=== PATIENT | female | born 1940 | race Caucasian/White ===

== ENCOUNTER 2016-09-15 04:26 | Inpatient (IN) | payer MEDICARE, OTHER ==
--- NOTE | ~2016-09-15 | HP ---
History And Physical [address] [address] NAME: JUAN GA : 38 STATUS : ADM Danny PAT#: [id number] AGE: 75 ADM/REG DATE : 09/15/16 MR#: [id number] REPORT SERV DATE: 09/15/16 DICTATED BY: DAVID MUNIZ DATE: 09/15/16 REPORT STATUS : Draft TRANSCRIBED BY: MODL DATE: 09/15/16 DATE OF ADMISSION: 09/15/2016 CHIEF COMPLAINT: Accepted transfer from [facility] after speaking with Dr. Ruggiero. According to him, Mrs. Ga was 75-year-old female who presented there with five days of worsening shortness of breath and cough. He said initially she had presented the day before and after evaluation was discharged home because she had normal blood results and the chest x-ray was normal. She returned today with similar complaints and worsening shortness of breath and chest x-ray today showed patchy infiltrates in the right lung. This was suggestive of pneumonia according to their Radiology report. Her saturations were 91% to 92% on room air. White blood cell count was negative. Hemoglobin was 9.6, hematocrit 28; BUN was 42, creatinine 2.0 today. It was 1.8 earlier in the year. She had a BNP of 401 which was high. EKG was not performed in the ER there. An ABG was not done either. At the time of transfer according to Dr. Ruggiero, she had a blood pressure of 147/71, her heart rate was 76, respirations were 20 a minute, temperature was 98.2, and pulse oximetry was 91% on room air. [facility] was asked to accept her in transfer. At the time of my evaluation here, the patient was on 100% non-rebreather. According to the EMS, they had picked the patient up in the ER there on 4 L of oxygen via nasal cannula. En route, she had worsened and they had bumped it up to 7 L of oxygen per minute. She denied any chest pain, palpitations, or orthopnea. She had no cough, hemoptysis, night sweats, or weight loss. She has not had any fevers, chills, nausea, vomiting, diarrhea. No history of recent falls or loss of consciousness. No history of recent hematemesis, hematochezia, or hematuria. No other history of recent travel or exposures. PAST MEDICAL HISTORY: Significant for history of coronary artery disease with history of myocardial infarction followed by Dr. Hiram Ortega; history of pulmonary edema, requiring mechanical ventilation; history of hypothyroidism; paroxysmal atrial fibrillation; chronic kidney disease, stage 3; peripheral arterial disease with stents in her legs, on Plavix. She also has history of diabetes mellitus; has a pacemaker placement; and hypertension as well. SOCIAL HISTORY: She does not smoke, drink, or use recreational drugs. FAMILY HISTORY: Noncontributory. MEDICATIONS: Her medications at home were reviewed by me in the chart today and reordered by me. REVIEW OF SYSTEMS: As in history of present illness. All other systems were reviewed in detail and are quite unremarkable. PHYSICAL EXAMINATION: GENERAL: This is a pleasant 75-year-old female, not in any acute distress. HEENT: Her head is atraumatic and normocephalic. She is alert, awake, oriented to time, History And Physical [address] [address] NAME: JUAN GA : 38 STATUS : ADM Danny PAT#: [id number] AGE: 75 ADM/REG DATE : 09/15/16 MR#: [id number] REPORT SERV DATE: 09/15/16 DICTATED BY: DAVID MUNIZ DATE: 09/15/16 REPORT STATUS : Draft TRANSCRIBED BY: ELVIA DATE: 09/15/16 place, and person. Her pupils are equal, reacting to light and accommodating. External ocular muscles are intact. Membranes are moist and pink. Sclerae are nonicteric. NECK: Supple with no jugular venous distention, lymphadenopathy, or thyromegaly. LUNGS: Auscultation of her lungs reveal bilateral crackles with no expiratory wheezes. There were no rales. HEART: Auscultation of her heart revealed normal rate with no murmurs, rubs, or gallops. ABDOMEN: Soft and nontender. Bowel sounds are present. EXTREMITIES: No cyanosis or clubbing. There was bilateral pitting lower extremity edema. NEUROLOGIC: Grossly intact. No focal sensory or motor deficits. She was able to move all four extremities. Higher functions appeared intact. VITAL SIGNS: Her vital signs which accompanied the patient from [facility] was reviewed by me in the chart today. LABORATORY DATA: Other laboratory data which accompanied the patient from [facility] was reviewed by me in the chart today. IMPRESSION: 1. Acute exacerbation of congestive heart failure. 2. Volume overload. 3. Diabetes mellitus type 2. 4. Uncontrolled hypertension. 5. Acute hypoxic respiratory failure secondary to volume overload and pulmonary edema. 6. Coronary artery disease with history of myocardial infarction. 7. Hypothyroidism. 8. Paroxysmal atrial fibrillation. 9. Chronic kidney disease, stage 3. 10.Peripheral arterial disease with stents. PLAN: We will admit Mrs. Ga to the Hospitalist Service with telemetry for a 24-hour observation period. At this time, I do not feel it is pneumonia, but more like congestive heart failure with elevated BNP. We will go ahead and start her on diuretics for 24 hours, and get an echocardiogram. We will follow serial outputs and daily weights as well. Due to her acute hypoxic respiratory failure upon arrival here, we will go ahead and get a stat chest x-ray. Give her a dose of intravenous Bumex stat. Get an arterial blood gas, and if necessary we will start her on BiPAP therapy for positive pressure ventilation. For her uncontrolled blood pressures we will start her on hydralazine given stat x1 now and q.4-6 hours as needed to control pressures. We will restart her home medications as well. We will also get an EKG and follow serial troponins and cardiac enzymes. We will go ahead and consult [facility] to see her in the morning. Meanwhile, we will place her on bronchodilators and oxygen, hold antibiotics for now. We will also start her on blood sugar control with NovoLog given subcutaneously per sliding scale and check her A1c. She will be placed on unfractionated heparin for DVT prophylaxis while here. We will also continue her Plavix. Please see today's orders for all the details. I have discussed the above plans with the patient. Her questions were answered and she is agreeable to the above recommendations. Hospitalist Service will be following her during her stay here. History And Physical [address] [place]. [address] NAME: JUAN GA : 38 STATUS : ADM Danny PAT#: [id number] AGE: 75 ADM/REG DATE : 09/15/16 MR#: [id number] REPORT SERV DATE: 09/15/16 DICTATED BY: DAVID MUNIZ DATE: 09/15/16 REPORT STATUS : Draft TRANSCRIBED BY: ELVIA DATE: 09/15/16 Total critical care time spent with the patient was 45 minutes. /ELVIA David Muniz M.D. / [id number] CC: Driss Calabrese MD
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
--- NOTE | ~2016-09-15 | DS ---
Discharge Summary [facility] [address] [facility]. [address] NAME: JUAN GA : 38 STATUS : ADM IN [facility]#: [id number] AGE: 75 ADM/REG DATE : 09/16/16 MR#: [id number] REPORT SERV DATE: 09/24/16 DICTATED BY: Nikolay BARILLAS DATE: 09/24/16 REPORT STATUS : Draft TRANSCRIBED BY: MODL DATE: 09/24/16 ADMISSION DATE: 09/16/2016 DISCHARGE DATE: DATE OF INTERIM SUMMARY: 09/24/2016. For details of earlier hospital stay, please see interim summary dictated by Dr. Tobar on 09/20/2016. DIAGNOSES AT TIME OF CURRENT INTERIM SUMMARY: Recurrent atrial fibrillation, hypoxic respiratory failure, dense bilateral pulmonary infiltrates, permanent pacemaker, chronic kidney disease, demand ischemia, insulin-requiring diabetes, and chronic anemia. ACTIVE CONSULTATIONS: Pulmonology. PROCEDURES: None. HOSPITAL COURSE: Starting 09/21/2016, the ongoing concern for this patient is the source of her persistent dense pulmonary infiltrates and the associated hypoxic respiratory failure. She continues to have high O2 demands vacillating between Vapotherm and BiPAP therapy. The patient has received greater than seven days of broad-spectrum antimicrobial therapy in the form of vancomycin and cefepime with negative cultures and negative procalcitonin. Her current therapy has been transitioned to meropenem, but because of her complicated clinical picture, we have asked ID to see the patient and give a recommendation for the need for ongoing antimicrobial therapy. Her amiodarone has been discontinued over the concern for this being possibly related to amiodarone lung injury. This was okayed by Cardiology. The patient has gone back into atrial fibrillation off amiodarone and is currently being treated with Cardizem continuous infusion. The patient is on steroid therapy at 60 mg daily and she does have a slowly improving picture on chest x-ray. At the time of this dictation, we continued to observe her on meropenem until ID sees the patient. We will continue steroid therapy. We will continue her off amiodarone. We will manage her heart rate. We will continue her Cardizem. We will closely monitor data. She remains DNI with chemical code and BiPAP therapy allowable. I have explained her clinical picture in detail. I have reviewed the imaging with the family and discussed the precarious nature of her current respiratory status. We are not in a position to pursue consideration for bronchoscopy or open lung biopsy as this would certainly leave her with a need for mechanical ventilation for a potential extended period of time. As a result, our current plan is to continue with current therapy and observe closely with the additional input from ID as mentioned above. The patient's hospitalist care will be provided by another member of the team starting 09/25/2016 with ongoing comanagement from Pulmonary as well as input from Infectious Disease. NIGEL/ELVIA Discharge Summary [address] [place]. [address] NAME: JUAN GA : 38 STATUS : ADM IN [facility]#: [id number] AGE: 75 ADM/REG DATE : 09/16/16 MR#: [id number] REPORT SERV DATE: 09/24/16 DICTATED BY: Nikolay BARILLAS DATE: 09/24/16 REPORT STATUS : Draft TRANSCRIBED BY: ELVIA DATE: 09/24/16 Nikolay Barillas M.D. / [id number] CC: Carlos Johnson FREDRICK S
--- NOTE | ~2016-09-15 | DS ---
Discharge Summary [facility] [address] [place]. [address] NAME: JUAN GA : 38 STATUS : DIS IN PAT#: [id number] AGE: 75 ADM/REG DATE : 09/16/16 MR#: [id number] REPORT SERV DATE: 09/28/16 DICTATED BY: Nikolay BARILLAS DATE: 09/27/16 REPORT STATUS : Draft TRANSCRIBED BY: MODL DATE: 09/27/16 ADMISSION DATE: 09/16/2016 DISCHARGE DATE: 09/27/2016 SUMMARY Date of summary is 09/27/2016. For details of interim summaries, please see notes that were dictated on 09/20/2016, by Dr. Tobar and then on 09/24/2016, by myself. DIAGNOSES AT THE TIME OF THE PATIENT'S DEMISE: Acute hypoxic respiratory failure, bilateral pulmonary infiltrates, suspect pneumonia as well as progressive adult respiratory distress syndrome. Chronic kidney disease. Demand ischemia. Recurrent atrial fibrillation. Insulin-requiring diabetes. Chronic anemia. CONSULTATIONS: Pulmonology and cardiology. HOSPITAL COURSE: Starting 09/25/2016, the patient had continued to have a progressive course with high O2 requirements and intermittent BiPAP secondary to persistent dense bilateral pulmonary infiltrates. The patient has been seen and evaluated by Infectious Disease. They agreed to continue meropenem and re-culture. Lab work has been relatively unchanged and she has had no significant fevers and cultures have remained negative. On Tuesday, the patient had worsening respiratory status with increased respiratory effort and declining mental status. Her x-ray showed again very dense bilateral infiltrates. The patient is a known Do Not Intubate. The family was gathered and told that she would not likely survive her hospitalization and all family who would like to see her needed to come on to the hospital. The patient had a large gathering of family and in the course of the afternoon, she did to succumb to her multiple medical problems and . No resuscitation efforts were undertaken due to her wishes. No autopsy was requested. Per protocol, [facility] will be called. The patient's certificate was completed by myself at the time of the patient's demise, and her ultimate time of was 15:58 in the afternoon on 09/27/2016. NIGEL/ELVIA Nikolay Barillas M.D. / [id number] CC: Carlos Johnson
--- NOTE | ~2016-09-15 | IDS ---
Interim Discharge Summary [facility] [address] [place]. [address] NAME: JUAN GA : 38 STATUS : ADM IN [facility]#: [id number] AGE: 75 ADM/REG DATE : 09/16/16 MR#: [id number] REPORT SERV DATE: 09/20/16 DICTATED BY: DATE: REPORT STATUS : Draft TRANSCRIBED BY: MODL DATE: 09/20/16 ADMISSION DATE: 09/16/2016 DISCHARGE DATE: The patient is admitted to the [facility]. ATTENDING PHYSICIANS: 1. Ishmael Tobar MD. 2. Sergio Moore MD. CONSULTANTS: Include Dr. Liz Jean Baptiste of pulmonology and Dr. Saurabh Cruz of Cardiology. CURRENT DIAGNOSES: 1. Acute hypoxemic respiratory failure-currently requiring p.r.n. BiPAP and/or 15 L of oxygen by nasal cannula, for trial of Vapotherm today. 2. Bilateral community-acquired pneumonia. 3. Acute "flash" pulmonary edema. 4. Paroxysmal atrial fibrillation, status post ablation. 5. History of sick sinus syndrome, status post pacemaker. 6. Demand related ischemia-no acute myocardial infarction. 7. History of coronary artery disease and prior LAD stent. 8. Hypertension-occasionally uncontrolled, suspect due to anxiety. 9. Insulin-dependent diabetes mellitus type 2-controlled. Hemoglobin A1c 6.5. Occasional hypoglycemia in the hospital. 10.Chronic kidney disease, stage 3-stable. 11.History of peripheral arterial disease with prior carotid stent and SFA stent. 12.Chronic anemia. 13.History of GI bleeding-no evidence of current GI bleed. 14.Scant hemoptysis-suspect due to pneumonia and/or pulmonary edema. 15.Hypothyroidism-with iatrogenic hyperthyroidism. Levothyroxine decreased. 16.Generalized anxiety disorder-benzodiazepine dependent requiring Precedex for BiPAP. IMAGIN. Portable chest x-ray 09/15 shows diffuse bilateral pulmonary infiltrates with vascular congestion. Atelectasis and/or consolidation involving right lung base. Small possible small right pleural effusion. 2. Echocardiogram, 09/15, normal left ventricular size and systolic function with EF 55%. Mild left ventricular diastolic dysfunction. Normal right ventricular size and systolic function. Mild aortic and mitral regurgitation. 3. Chest CT without contrast, 09/16, shows extensive bilateral pneumonia most dense in the right base. 4. Portable chest x-ray, 09/17, shows some improvement in the right lower lobe. However, bilaterally severe predominantly alveolar densities probably pneumonic, however, secondary failure changes cannot be excluded. 5. Portable chest, 09/18, showing severe pneumonic infiltrate throughout both lung torres. Cardiomegaly. Interim Discharge Summary [facility] [id number] [place]. [address] NAME: JUAN GA : 38 STATUS : ADM IN PAT#: [id number] AGE: 75 ADM/REG DATE : 09/16/16 MR#: [id number] REPORT SERV DATE: 09/20/16 DICTATED BY: DATE: REPORT STATUS : Draft TRANSCRIBED BY: MODL DATE: 09/20/16 6. Portable chest, 09/18, shows severe, but stable appearance of diffuse pulmonic infiltrates and cardiomegaly. No increased density in the lung torres. 7. Portable chest x-ray, 09/19, shows diffuse bilateral infiltrates with no significant change. 8. Portable chest, 09/20, continued multifocal airspace consolidation, slightly improved in the right upper lobe. PERTINENT LABS: Blood gases prior to admission showed pH 7.39, PCO2 45, PO2 101, oxygen saturation 97% on FiO2 100%. BNP 420. White blood cell count 15.1, hemoglobin 10.9- currently 8.6, hematocrit 34.3, platelets 268. Initial creatinine 1.9, currently 1.6. Glucose values this hospitalization ranging from 56 to 376. Initial troponin 0.01. TSH 0.135 with free T4 2.02. Urine Legionella antigen negative. Strep pneumococcal antigen negative. Sputum Gram stain and culture from 09/15 shows less than 10 white blood cells, less than 25 epithelial cells with growth of normal respiratory ishaan. Blood cultures x2 negative. Procalcitonin has been negative. BRIEF HISTORY: For full details, please see the previously dictated history of present illness by Dr. David Quiroga. This is a 75-year-old white female, who was accepted in transfer from [facility] Emergency Department. The patient had presented there with five days of worsening shortness of breath and a cough productive of blood-tinged sputum. She had initially been seen in the [place] [facility] Department on the , but discharged home due to normal blood results and normal chest x-ray. She returned on the with similar complaints and worsening shortness of breath. Chest x-ray that day showed patchy infiltrates in the right lung. Oxygen saturations reportedly there were normal, and the patient was accepted in transfer. When she arrived to the [facility] Emergency Department, she was hypoxemic on a 100% nonrebreather with systolic blood pressure ranging in the 180 to 200 range. She was admitted through the Hospitalist Service following stabilization with presumed diagnoses of acute exacerbation of congestive heart failure, volume overload, acute hypoxemic respiratory failure due to volume overload and pulmonary edema, and potential bilateral community- acquired pneumonia. HOSPITAL COURSE: The patient initially was admitted to the 7th floor, under the service of Dr. Ishmael Tobar. Consultations were obtained from Cardiology and Pulmonology. The patient was diuresed, but still had very high oxygen requirements between 12 and 15 L nasal cannula. Cardiology felt that this more likely represented a pneumonic process rather than congestive heart failure as echocardiogram demonstrated only mild diastolic dysfunction and preserved ejection fraction of 55%. BNP was only minimally elevated at 400. The patient had evidence of demand related ischemia, but no evidence of acute myocardial infarction. They recommended maximum management of medications for the treatment of pneumonia. Unfortunately, despite Rocephin and azithromycin, flutter valve, incentive spirometry, IV steroids, nebulized steroids use, the patient continued to require very high amounts of oxygen. A CT of her chest was obtained to evaluate for any other pathology and was read only as pneumonia with possible superimposed volume component. The patient continued to require 100% nonrebreather through the evening and night of 09/17. The team attempted to Interim Discharge Summary [address] [address] NAME: JUAN GA : 38 STATUS : ADM IN [facility]#: [id number] AGE: 75 ADM/REG DATE : 09/16/16 MR#: [id number] REPORT SERV DATE: 09/20/16 DICTATED BY: DATE: REPORT STATUS : Draft TRANSCRIBED BY: MODL DATE: 09/20/16 place her on BiPAP for correction of hypoxemia, but her anxiety would not allow for that, despite the use of large doses of Ativan. End of life counseling occurred on 09/18, at which point, it was determined the patient was a do not resuscitate and do not intubate. I was contacted the afternoon of 09/18 to accept the patient in transfer to the IMCU as she was then amenable to BiPAP therapy. The etiology of the patient's profound acute hypoxemic respiratory failure, remains unclear. She has no history of underlying chronic lung disease or chronic hypoxemia. She does have ongoing evidence of bilateral pneumonic infiltrates, but negative procalcitonin and negative sputum samples. She was briefly on vancomycin and Maxipime on the floor during time of acute worsening, for concern of possible ineffective antibiotic coverage. Those have been changed back to Rocephin and azithromycin here. When Pulmonary saw the patient, they felt that she still had a component of volume overload and was placed on IV Bumex. With that, she has diuresed over 2 L with improvement in her chest x-ray and oxygen requirements, and stability of her creatinine. Currently, she is still requiring intermittent BiPAP with a Precedex drip to assist intolerance. We will attempt to trial her on Vapotherm today and see how that goes, to possibly transfer her out to the floor later this evening or tomorrow. There is some question on the chart of a prior diagnosis of amiodarone-induced pulmonary toxicity. Of note, the patient is currently taking amiodarone. This medication was not discontinued by Cardiology and so they have been reconsulted to clarify the issue into provide recommendations on the patient's amiodarone specifically. Her other issues are stable at present. Her oral hypoglycemic with discontinued here and insulin decreased due to hypoglycemia. Her home dose of levothyroxine was similarly decreased, for evidence of iatrogenic hyperthyroidism and over replacement. DISPOSITION: My colleague will assume care of the patient starting tomorrow. JOSEFINA/ELVIA Sergio Moore M.D. / [id number] CC: Carlos Silverio FREDRICK S
--- NOTE | ~2016-09-15 | CN ---
Consultation Report [facility] [address]. [address] NAME: JUAN GA : 38 STATUS : ADM IN [facility]#: [id number] AGE: 75 ADM/REG DATE : 09/16/16 MR#: [id number] REPORT SERV DATE: 09/25/16 DICTATED BY: DAVID CRUMP DATE: 09/24/16 REPORT STATUS : Draft TRANSCRIBED BY: MODL DATE: 09/24/16 INFECTIOUS DISEASE CONSULT DATE OF CONSULTATION: REASON FOR CONSULT: Respiratory failure. HISTORY OF PRESENT ILLNESS: 75 years old white lady with history of coronary artery disease, status post [place], pace maker placement, paroxysmal atrial fibrillation, hypothyroidism, diabetes, hypertension, peripheral vascular disease, status post left carotid endarterectomy, and superficial femoral artery stent, who was transferred from [facility] emergency room for respiratory failure. In October 2015, she had acute respiratory failure, thought to be due to pulmonary edema. She was started on amiodarone for atrial fibrillation. A few days prior to this admission, she started feeling tired. She is usually quite active. She noted runny nose, cough. She was trying to expectorate maybe some colored sputum. The patient repeatedly tells me she did not feel short of breath, although the family states that she was short of breath. She had no fever or chills, no chest pain. They took her to the local emergency room at [facility], it sounds like three times and eventually with the third visit, a chest x-ray showed some bilateral patchy infiltrates more on the right side. She was transferred to [facility]. According to the H and P, on route from there, she went from 4 L of oxygen to 100% non-rebreather mask. At the emergency room, she was given Solu-Medrol, Rocephin, and azithromycin. Lab work showed WBC of 9, hemoglobin 9, creatinine 2.0. Liver enzymes within normal limits. BNP of 1. After she came here, she was thought to be in heart failure, so she was given hydralazine for hypertension and a diuretic. Blood cultures were collected and were negative. Of note, the blood cultures from blood sore also negative. A sputum culture was done and grew just normal ishaan. The following day, she was started on Rocephin, azithromycin, and steroids because it was thought that this maybe more than heart failure with presumed pneumonia. Echocardiogram showed mild diastolic dysfunction, left ventricular ejection fraction of 55%. A CT scan of the chest on the 16 of September showed bilateral upper lobe "terminal lobular consolidations" and right more than left lower lobe consolidations. The heart looked enlarged. She has persistent respiratory failure with persistent lung infiltrates. She requires BiPAP. She saturates when she goes on Vapotherm. She mostly complains of tiredness. She has mouth soreness. She has abdominal pain perhaps from coughing. She has a Chan catheter. There was some question about maybe amiodarone causing the respiratory failure, so that was stopped on the . Antibiotics mostly have been Rocephin, azithromycin with an interlude cefepime and vancomycin. Then yesterday, the antibiotics were changed to meropenem. ABGs have been showing some hypercapnia on 100% of oxygen. She has not had a fever, blood pressure has not been low, she has been diuresed. Lab work today creatinine improved to Consultation Report [address] [address] NAME: JUAN GA : 38 STATUS : ADM IN [facility]#: [id number] AGE: 75 ADM/REG DATE : 09/16/16 MR#: [id number] REPORT SERV DATE: 09/25/16 DICTATED BY: DAVID CRUMP DATE: 09/24/16 REPORT STATUS : Draft TRANSCRIBED BY: ELVIA DATE: 09/24/16 1.4, BUN increased to 76, WBC 13, hemoglobin 7.4. She never had any bandemia. According to the family a few days prior to her getting ill, she might have choked on taking a pill. PAST MEDICAL HISTORY: As I mentioned above plus cholecystectomy and skin cancers removed from her nose. ALLERGIES: LISTED IN THE CHART ARE STADOL AND DEMEROL CAUSING ANAPHYLAXIS AND THEN ALSO HYDROCHLOROTHIAZIDE, CODEINE, MORPHINE, AND BENAZEPRIL. MEDICATIONS ON ADMISSION: Xanax as needed, aspirin, Lipitor, Bumex, clonidine, Plavix, Tricor, hydralazine, insulin, isosorbide, labetalol, levothyroxine, omeprazole, Januvia, and Spiriva. SOCIAL HISTORY: She is a . Lives by herself. She has no pets. She is active. She has been around a young child with possible influenza. She has not traveled. She has not spent time outdoors. No house remodeling. She has not lived in other states. No history of TB. She does not smoke. FAMILY HISTORY: As I mentioned, there is a baby with febrile illness, possible influenza. PHYSICAL EXAMINATION: GENERAL: On exam, she is tired, she speaks softly, hard to understand. She has some whitish discoloration of the oral mucosa. She has an ulceration on the tongue. LUNGS: With decreased sounds throughout and rales. HEART: Distant sounds. Regular rhythm. ABDOMEN: Compressible, some soreness to palpation from where she had Lovenox injections. EXTREMITIES: She has ecchymosis over her arms and some recumbent left arm edema. No sacral decubitus. No skin rash that I can see. No feet lesions. ASSESSMENT AND PLAN: 1. Bilateral pneumonia with respiratory failure and some hypercapnia. 2. Oral thrush. Also watch for labial herpes. 3. The patient with the pacemaker. The site does not look inflamed. History of coronary artery disease with paroxysmal atrial fibrillation. 4. Diabetes. 5. Hypertension. 6. Hypothyroidism. This might have started with influenza or flu-like viral illness and developed pneumonia. She has persistent lung infiltrates. She also might have aspirated on a pill. She has been getting steroids and antibiotics for community-acquired pneumonia for 10 plus days but yesterday she was switched to meropenem to cover nosocomial and anaerobic organisms. She had prior episodes of pneumonia and at least one episode of heart failure Consultation Report [address] [place]. [address] NAME: JUAN GA : 38 STATUS : ADM IN [facility]#: [id number] AGE: 75 ADM/REG DATE : 09/16/16 MR#: [id number] REPORT SERV DATE: 09/25/16 DICTATED BY: DAVID CRUMP DATE: 09/24/16 REPORT STATUS : Draft TRANSCRIBED BY: ELVIA DATE: 09/24/16 according to the family and the chart. Differential diagnosis as I mentioned, post influenza pneumonia, aspiration. I wonder if there was initially any heart failure component. I discussed with the patient and the family. I discussed with Pulmonology. Time spent more than 2 hours. RADHA/ELVIA David Crump M.D. / [id number] CC: Carlos Johnson Dr.
--- NOTE | ~2016-09-15 | CN ---
Consultation Report [facility] [address] [place]. [address] NAME: JUAN GA : 38 STATUS : ADM Danny PAT#: [id number] AGE: 75 ADM/REG DATE : 09/15/16 MR#: [id number] REPORT SERV DATE: 09/15/16 DICTATED BY: JAIME EUCEDA DATE: 09/15/16 REPORT STATUS : Draft TRANSCRIBED BY: MODL DATE: 09/15/16 CARDIOVASCULAR CONSULTATION DATE OF CONSULTATION: 09/15/2016 Dyspnea. HISTORY OF PRESENT ILLNESS: This is a 75-year-old patient of my partner, Dr. Hiram Handy. She has a history of previous coronary artery disease with stenting; paroxysmal atrial fibrillation, status post atrial fibrillation ablation; sick sinus syndrome, status post pacemaker; and known peripheral vascular disease. She is admitted with worsening symptoms of dyspnea and transferred from [facility]. She was initially given IV fluids overnight and her respiratory status has worsened. She does not complain of any chest pain. She is more hypoxic. She is quite dyspneic. PAST MEDICAL HISTORY: 1. Coronary artery disease, status post previous LAD stenting. 2. Paroxysmal atrial fibrillation, status post atrial fibrillation ablation. 3. Sick sinus syndrome, status post pacemaker placement. 4. Hypertension. 5. Hypercholesterolemia. 6. Type 2 diabetes. 7. History of GI bleed. 8. History of peripheral vascular disease with known carotid disease and prior SFA stenting. 9. Chronic kidney disease, stage III. SOCIAL HISTORY: She does not smoke or drink alcohol. FAMILY HISTORY: There is no family history of early coronary artery disease. REVIEW OF SYSTEMS: A complete review of systems was obtained, which is negative in detail except as mentioned above in the HPI. ALLERGIES: A RASHES NOTED TO BENAZEPRIL, CODEINE, MORPHINE, HYDROCHLOROTHIAZIDE, AND MEPERIDINE. HOME MEDICATIONS: Include: 1. Alprazolam, aspirin 81 mg daily, Lipitor 20 mg daily, Bumex 2 mg once a day. 2. Clonidine 0.1 twice a day, Plavix 75 mg once a day, TriCor, hydralazine 25 mg three times a day, insulin, Imdur 90 mg daily, labetalol 100 mg twice a day, Synthroid, Prilosec, and Januvia. PHYSICAL EXAMINATION: Consultation Report [facility] [address] [place]. [address] NAME: JUAN GA : 38 STATUS : ADM Danny PAT#: [id number] AGE: 75 ADM/REG DATE : 09/15/16 MR#: [id number] REPORT SERV DATE: 09/15/16 DICTATED BY: JAIME EUCEDA DATE: 09/15/16 REPORT STATUS : Draft TRANSCRIBED BY: MODL DATE: 09/15/16 VITAL SIGNS: Blood pressure initially 175/75, heart rate of 74, respiratory rate of 14. GENERAL: Comfortable in no acute distress. HEENT: Anicteric. No xanthelasma. Lips without cyanosis. NECK: No JVD. Carotids 2+ and symmetric. No carotid bruits. CHEST: There are diffuse inspiratory and expiratory wheezes with mild crackles at both bases bilaterally. CARDIAC: Irregularly irregular. Normal S1, S2. ABD: Soft, nontender, nondistended. Normal bowel sounds. No abdominal bruits. EXT: No clubbing, cyanosis or edema 2+ and symmetric distal pulses. SKIN: Warm. Dry. No venous stasis changes. MS: No kyphosis. NEURO/PSYCH: Oriented x3. No anxiety or depression. IMAGING: EKG: A 12-lead EKG shows the sinus rhythm, 73 beats per minute. Nonspecific T- wave abnormalities noted. Echocardiogram: Echocardiogram on 09/15/2016 shows normal left ventricular size and systolic function with EF of 55%. Mild valvular regurgitation noted. PA chest x-ray shows diffuse bilateral pulmonary infiltrates. LABORATORY STUDIES: Potassium of 4.3, creatinine of 1.9. White count of 15,000, hematocrit of 34. Troponin of 0.1. BNP of 420. IMPRESSION: This is a 75-year-old woman admitted with respiratory failure in the setting of likely pneumonia and volume overload in the setting of acute on chronic diastolic congestive heart failure. She has a mild troponin elevation in the setting consistent with demand ischemia. I agree with plans for IV diuresis and antibiotics and supportive care for her hypertension. WW/MODSebastian Jaime Euceda M.D. / [id number] CC: MD Lui Martinez
[~2016-09-15 04:26] MED LIST: AMARYL2 PO; APRES25 PO; ASA5GR PO; ASAB PO; ASABAYER PO; ASAEC PO; AVAP150 PO; BUM2 PO; CAT1 PO; COREG25 PO; DIABET2.5 PO; DIABETA5 PO; DIGITEK0.125 MG PO; DIOV160 PO; DIOV80 PO; DIOVAN320 MG PO; ELIQUIS 2.5 MG2.5 MG PO; ENDOCET1 TAB PO; HUMALOG SC; HYDRALAZINE100 MG PO; IMDUR30 PO; IMDUR60 PO; JANUVIA100 MG PO; JANUVIA50 PO; L20 PO; L40 PO; LANTUS SC; LIPITOR20 PO; LOM PO; LORTAB 5 PO; MAALOX PO; MIRALAXPKT PO; MULTIPLE VIT PO; NEXIUM40 PO; NIFEDIAC CC90 MG PO; NITROSTAT0.4 MG SL; NORCO1 TA1 PO; NORV10 PO; PCET PO; PERCOCET; PERCOCET1 TA5 PO; PLAVIX PO; PR25 PO; PRILOSEC40 MG PO; SOMATAB PO; SPIRIVA INH; STOOL SOFTEN100 MG PO; SYN.05 PO; SYN075 PO; SYN1 PO; TESS PO; TRANDAT100 PO; TRICOR145 PO; V5 PO; VITD PO; X25 PO; X5 PO; XANAX1 MG PO
[2016-09-15 05:02] LABS: ALLENS TEST Pos; BE (BASE EXCESS) 0.4 MEQ/L (0 +/- 2.5); DEVICE NRB; HCO3 (ACTUAL BICARBONATE) 25.8 MEQ/L (23-27); HEMOBLOGIN CONTENT 11.5 G/DL (12-16); INSTRUMENT SERIAL # 35151; METHEMOGLOBIN 0.3 % (0-3); O2 CONTENT 15.7 VOL% (18-24); OPERATOR ID 33449; PCO2 (CO2 TENSION) 45 MMHG (35-45); PO2 (O2 TENSION) 101 MMHG (79-93); SAMPLE Arterial; pH 7.38 (7.37-7.43)
[2016-09-15] MEDS ORDERED: APRES50 PO (05:35)
[2016-09-15 05:58] LABS: BE (BASE EXCESS) 6.4 MEQ/L (0 +/- 2.5); CARBOXYHEMOGLOBIN 1.3 % (0-3); HEMOBLOGIN CONTENT 12.7 G/DL (12-16); INSTRUMENT SERIAL # 8087; METHEMOGLOBIN 0.2 % (0-3); PCO2 (CO2 TENSION) 56 MMHG (35-45); PO2 (O2 TENSION) 73 MMHG (79-93); pH 7.39 (7.37-7.43)
[2016-09-15 05:59] LABS: ALLENS TEST Pos; DEVICE NC; O2 CONTENT 16.5 VOL% (18-24); OPERATOR ID 35390; SAMPLE Arterial
[2016-09-15 08:13] LABS: BASOPHILS 0.1 %; BASOPHILS ABSOLUTE 0.02 10/3/uL (0.0-0.16); EOSINOPHILS 0.1 %; EOSINOPHILS ABSOLUTE 0.01 10/3/uL (0.0-0.53); HEMATOCRIT 34.3 % (36.0-48.0); HEMOGLOBIN 10.9 g/dL (12.0-16.0); IMMATURE GRANULOCYTES 0.6 %; IMMATURE GRANULOCYTES ABSOLUTE 0.09 10/3/uL (0.0-0.11); LYMPHOCYTES 3.7 %; LYMPHOCYTES ABSOLUTE 0.56 10/3/uL (0.67-4.30); MEAN CORPUS HGB CONC 31.8 g/dL (32.0-36.0); MEAN CORPUSCULAR HEMOGLOB 28.5 pg (26.0-34.0); MEAN CORPUSCULAR VOLUME 89.6 fL (80-100); MEAN PLATELET VOLUME 9.6 fL (9.2-13.0); MONOCYTES 1.2 %; MONOCYTES ABSOLUTE 0.18 10/3/uL (0.21-1.20); NEUTROPHILS 94.3 %; NEUTROPHILS ABSOLUTE 14.22 10/3/uL (2.02-8.40); PLATELET COUNT 268 10/3/uL (150-400); RBC DISTRIBUTION WIDTH 14.5 % (12.0-16.0); RED CELL COUNT 3.83 10/6/uL (4.0-5.6); WHITE BLOOD CELLS 15.1 10/3/uL (4.5-10.5)
[2016-09-15 08:14] LABS: MANUAL DIFF NO %
[2016-09-15 08:32] LABS: A/G RATIO 0.8 (0.7-1.9); ALBUMIN 3.3 G/DL (3.5-5.0); ALKALINE PHOSPHATASE 83 U/L (45-117); BUN (BLOOD UREA NITROGEN) 41 MG/DL (6-23); CALCIUM, SERUM 8.5 MG/DL (8.5-10.4); CHLORIDE, SERUM 98 MMOL/L (96-112); CO2 (CARBON DIOXIDE) 29 MMOL/L (24-34); GFR AFRICAN AMERICAN 29 ML/MIN (>=60); GFR NON AFRICAN AMERICAN 25 ML/MIN (>=60); GLOBULIN 4.3 G/DL (2.5-4.1); GLUCOSE, SERUM 376 MG/DL (60-99); PHOSPHORUS, SERUM 4.2 MG/DL (2.5-4.5); POTASSIUM, SERUM 4.3 MMOL/L (3.5-5.3); SGOT(AST) 30 U/L (5-40); SGPT(ALT) 36 U/L (5-65); SODIUM, SERUM 136 MMOL/L (135-148); TOTAL BILIRUBIN 0.7 MG/DL (0-1.2); TOTAL PROTEIN 7.6 G/DL (6.0-8.5); ULTRASENSITIVE TSH 0.231 MCIU/ML (0.358-3.740)
[2016-09-15] MEDS ORDERED: TRAN200 PO (17:17)
[2016-09-15] MEDS ORDERED: ASAB PO (17:17)
[2016-09-15] MEDS ORDERED: BUM2 PO ×2 (17:17)
[2016-09-15] MEDS ORDERED: IMDUR30 PO (17:18)
[2016-09-15] MEDS ORDERED: LEVOTHYROXIN75 MCG PO (17:18)
[2016-09-15] MEDS ORDERED: JANUVIA50 PO (17:18)
[2016-09-15] MEDS ORDERED: CAT1 PO (17:18)
[2016-09-15] MEDS ORDERED: X5 PO (17:19)
[2016-09-15] MEDS ORDERED: X25 PO (17:20)
[2016-09-15] MEDS ORDERED: HYDRALAZINE100 MG PO (17:20)
[2016-09-15] MEDS ORDERED: PLAVIX PO (17:20)
[2016-09-15] MEDS ORDERED: LIPITOR40 PO (17:20)
[2016-09-15] MEDS ORDERED: LANTUS SC (17:20)
[2016-09-15] MEDS ORDERED: PRILOSEC40 MG PO (17:21)
[2016-09-15] MEDS ORDERED: HUMALOG SC (17:21)
[2016-09-15] MEDS ORDERED: NORV10 PO (17:21)
[2016-09-15] MEDS ORDERED: CORDARONE PO (17:21)
[2016-09-15] MEDS ORDERED: VITAMIN D PO (17:34)
[2016-09-16 03:50] LABS: BE (BASE EXCESS) 4.6 MEQ/L (0 +/- 2.5); CARBOXYHEMOGLOBIN 0.3 % (0-3); DEVICE NRB; HEMOBLOGIN CONTENT 10.2 G/DL (12-16); INSTRUMENT SERIAL # 35151; METHEMOGLOBIN 0.4 % (0-3); O2 CONTENT 14.1 VOL% (18-24); PCO2 (CO2 TENSION) 49 MMHG (35-45); PO2 (O2 TENSION) 118 MMHG (79-93); SAMPLE Arterial; pH 7.41 (7.37-7.43)
[2016-09-16 05:19] LABS: BASOPHILS 0.1 %; BASOPHILS ABSOLUTE 0.02 10/3/uL (0.0-0.16); EOSINOPHILS 0 %; HEMATOCRIT 31.2 % (36.0-48.0); HEMOGLOBIN 10.1 g/dL (12.0-16.0); IMMATURE GRANULOCYTES 0.6 %; IMMATURE GRANULOCYTES ABSOLUTE 0.09 10/3/uL (0.0-0.11); LYMPHOCYTES 3.9 %; LYMPHOCYTES ABSOLUTE 0.61 10/3/uL (0.67-4.30); MEAN CORPUS HGB CONC 32.4 g/dL (32.0-36.0); MEAN CORPUSCULAR HEMOGLOB 29.1 pg (26.0-34.0); MEAN CORPUSCULAR VOLUME 89.9 fL (80-100); MEAN PLATELET VOLUME 9.7 fL (9.2-13.0); MONOCYTES 1.8 %; MONOCYTES ABSOLUTE 0.28 10/3/uL (0.21-1.20); NEUTROPHILS 93.6 %; NEUTROPHILS ABSOLUTE 14.75 10/3/uL (2.02-8.40); PLATELET COUNT 234 10/3/uL (150-400); RBC DISTRIBUTION WIDTH 14.5 % (12.0-16.0); RED CELL COUNT 3.47 10/6/uL (4.0-5.6); WHITE BLOOD CELLS 15.8 10/3/uL (4.5-10.5)
[2016-09-16 05:20] LABS: MANUAL DIFF NO %
[2016-09-16 05:32] LABS: A/G RATIO 0.8 (0.7-1.9); ALBUMIN 2.9 G/DL (3.5-5.0); CALCIUM, SERUM 8.6 MG/DL (8.5-10.4); CHLORIDE, SERUM 99 MMOL/L (96-112); CO2 (CARBON DIOXIDE) 30 MMOL/L (24-34); CREATININE 1.67 MG/DL (0.55-1.02); GFR AFRICAN AMERICAN 34 ML/MIN (>=60); GFR NON AFRICAN AMERICAN 29 ML/MIN (>=60); GLOBULIN 3.8 G/DL (2.5-4.1); POTASSIUM, SERUM 3.9 MMOL/L (3.5-5.3); SGOT(AST) 24 U/L (5-40); SGPT(ALT) 31 U/L (5-65); SODIUM, SERUM 141 MMOL/L (135-148); TOTAL BILIRUBIN 0.6 MG/DL (0-1.2); TOTAL PROTEIN 6.7 G/DL (6.0-8.5)
[2016-09-16 05:36] LABS: ALKALINE PHOSPHATASE 65 U/L (45-117); BUN (BLOOD UREA NITROGEN) 46 MG/DL (6-23); GLUCOSE, SERUM 289 MG/DL (60-99)
[2016-09-16 06:26] LABS: PROCALCITONIN 0.08 ng/mL (<0.5)
[2016-09-16 06:33] LABS: B NATRIURETIC PEPTIDE (BNP) 300.7 PG/ML (< 100.0)
[2016-09-16 13:07] LABS: GLYCOHEMOGLOBIN (HbA1c) 6.5 % (4.7-6.1)
[2016-09-17 05:15] LABS: BASOPHILS 0.1 %; BASOPHILS ABSOLUTE 0.01 10/3/uL (0.0-0.16); EOSINOPHILS 0 %; HEMATOCRIT 31.2 % (36.0-48.0); HEMOGLOBIN 9.9 g/dL (12.0-16.0); IMMATURE GRANULOCYTES 0.9 %; IMMATURE GRANULOCYTES ABSOLUTE 0.17 10/3/uL (0.0-0.11); LYMPHOCYTES 2.6 %; LYMPHOCYTES ABSOLUTE 0.51 10/3/uL (0.67-4.30); MEAN CORPUS HGB CONC 31.7 g/dL (32.0-36.0); MEAN CORPUSCULAR VOLUME 91.5 fL (80-100); MEAN PLATELET VOLUME 9.9 fL (9.2-13.0); MONOCYTES 2.5 %; NEUTROPHILS 93.9 %; NEUTROPHILS ABSOLUTE 18.71 10/3/uL (2.02-8.40); PLATELET COUNT 225 10/3/uL (150-400); RBC DISTRIBUTION WIDTH 14.4 % (12.0-16.0); RED CELL COUNT 3.41 10/6/uL (4.0-5.6); WHITE BLOOD CELLS 19.9 10/3/uL (4.5-10.5)
[2016-09-17 05:16] LABS: MANUAL DIFF NO %
[2016-09-17 05:48] LABS: CALCIUM, SERUM 8.1 MG/DL (8.5-10.4); CHLORIDE, SERUM 106 MMOL/L (96-112); CO2 (CARBON DIOXIDE) 34 MMOL/L (24-34); GFR AFRICAN AMERICAN 36 ML/MIN (>=60); GFR NON AFRICAN AMERICAN 31 ML/MIN (>=60); POTASSIUM, SERUM 3.6 MMOL/L (3.5-5.3); SODIUM, SERUM 146 MMOL/L (135-148)
[2016-09-17 05:51] LABS: BUN (BLOOD UREA NITROGEN) 55 MG/DL (6-23)
[2016-09-17 05:52] LABS: GLUCOSE, SERUM 114 MG/DL (60-99)
[2016-09-17 23:22] LABS: ALLENS TEST Pos; BE (BASE EXCESS) 7.1 MEQ/L (0 +/- 2.5); CARBOXYHEMOGLOBIN 0.3 % (0-3); DEVICE HFNC; HCO3 (ACTUAL BICARBONATE) 34.4 MEQ/L (23-27); HEMOBLOGIN CONTENT 10.1 G/DL (12-16); INSTRUMENT SERIAL # 35151; METHEMOGLOBIN 0.4 % (0-3); O2 CONTENT 12.9 VOL% (18-24); OPERATOR ID 13861; PCO2 (CO2 TENSION) 65 MMHG (35-45); PO2 (O2 TENSION) 70 MMHG (79-93); SAMPLE Arterial; pH 7.34 (7.37-7.43)
[2016-09-18 04:20] LABS: HEMATOCRIT 31.5 % (36.0-48.0); HEMOGLOBIN 9.9 g/dL (12.0-16.0); MANUAL DIFF YES %; MEAN CORPUS HGB CONC 31.4 g/dL (32.0-36.0); MEAN CORPUSCULAR HEMOGLOB 29.2 pg (26.0-34.0); MEAN CORPUSCULAR VOLUME 92.9 fL (80-100); MEAN PLATELET VOLUME 10.3 fL (9.2-13.0); PLATELET COUNT 231 10/3/uL (150-400); RBC DISTRIBUTION WIDTH 14.7 % (12.0-16.0); RED CELL COUNT 3.39 10/6/uL (4.0-5.6); WHITE BLOOD CELLS 18.6 10/3/uL (4.5-10.5)
[2016-09-18 04:34] LABS: CALCIUM, SERUM 8.3 MG/DL (8.5-10.4); CHLORIDE, SERUM 107 MMOL/L (96-112); CO2 (CARBON DIOXIDE) 35 MMOL/L (24-34); GFR AFRICAN AMERICAN 36 ML/MIN (>=60); GFR NON AFRICAN AMERICAN 31 ML/MIN (>=60); PHOSPHORUS, SERUM 3.7 MG/DL (2.5-4.5); POTASSIUM, SERUM 4.3 MMOL/L (3.5-5.3); SODIUM, SERUM 148 MMOL/L (135-148)
[2016-09-18 04:40] LABS: BAND NEUTROPHILS 1 %; LYMPHOCYTES 4 %; LYMPHOCYTES ABSOLUTE (CALC) 0.74 10/3/uL (0.67-4.30); NEUTROPHILS ABSOLUTE (CALC) 17.86 10/3/uL (2.02-8.40); SEGMENTED NEUTROPHIL (0) 95 %; TOTAL NUCLEATED CELLS 100
[2016-09-18 04:41] LABS: PLATELET ESTIMATE ADQ (ADEQUATE)
[2016-09-18 04:42] LABS: BUN (BLOOD UREA NITROGEN) 70 MG/DL (6-23); GLUCOSE, SERUM 84 MG/DL (60-99)
[2016-09-18 15:46] LABS: ALLENS TEST Pos; BE (BASE EXCESS) 6.2 MEQ/L (0 +/- 2.5); CARBOXYHEMOGLOBIN 0.3 % (0-3); DEVICE NRB; HCO3 (ACTUAL BICARBONATE) 33.2 MEQ/L (23-27); HEMOBLOGIN CONTENT 10.8 G/DL (12-16); INSTRUMENT SERIAL # 35151; METHEMOGLOBIN 0.4 % (0-3); O2 CONTENT 13.8 VOL% (18-24); PCO2 (CO2 TENSION) 61 MMHG (35-45); PO2 (O2 TENSION) 70 MMHG (79-93); SAMPLE Arterial; pH 7.35 (7.37-7.43)
[2016-09-18 19:40] LABS: ALLENS TEST Pos; BE (BASE EXCESS) 6.9 MEQ/L (0 +/- 2.5); CARBOXYHEMOGLOBIN 0.3 % (0-3); HEMOBLOGIN CONTENT 8.9 G/DL (12-16); INSTRUMENT SERIAL # 35151; METHEMOGLOBIN 0.5 % (0-3); O2 CONTENT 11.1 VOL% (18-24); PCO2 (CO2 TENSION) 49 MMHG (35-45); PO2 (O2 TENSION) 59 MMHG (79-93); SAMPLE Arterial; pH 7.43 (7.37-7.43)
[2016-09-19 05:39] LABS: BASOPHILS 0.1 %; BASOPHILS ABSOLUTE 0.01 10/3/uL (0.0-0.16); EOSINOPHILS 0 %; HEMATOCRIT 29.5 % (36.0-48.0); HEMOGLOBIN 9.2 g/dL (12.0-16.0); IMMATURE GRANULOCYTES 1.1 %; IMMATURE GRANULOCYTES ABSOLUTE 0.16 10/3/uL (0.0-0.11); LYMPHOCYTES 3.2 %; LYMPHOCYTES ABSOLUTE 0.49 10/3/uL (0.67-4.30); MEAN CORPUS HGB CONC 31.2 g/dL (32.0-36.0); MEAN CORPUSCULAR HEMOGLOB 28.8 pg (26.0-34.0); MEAN CORPUSCULAR VOLUME 92.5 fL (80-100); MONOCYTES 2.2 %; MONOCYTES ABSOLUTE 0.34 10/3/uL (0.21-1.20); NEUTROPHILS 93.4 %; NEUTROPHILS ABSOLUTE 14.22 10/3/uL (2.02-8.40); PLATELET COUNT 203 10/3/uL (150-400); RED CELL COUNT 3.19 10/6/uL (4.0-5.6); WHITE BLOOD CELLS 15.2 10/3/uL (4.5-10.5)
[2016-09-19 05:52] LABS: BUN (BLOOD UREA NITROGEN) 68 MG/DL (6-23); CALCIUM, SERUM 8.6 MG/DL (8.5-10.4); CHLORIDE, SERUM 106 MMOL/L (96-112); CO2 (CARBON DIOXIDE) 32 MMOL/L (24-34); CREATININE 1.43 MG/DL (0.55-1.02); GFR AFRICAN AMERICAN 41 ML/MIN (>=60); GFR NON AFRICAN AMERICAN 35 ML/MIN (>=60); GLUCOSE, SERUM 139 MG/DL (60-99); POTASSIUM, SERUM 4.2 MMOL/L (3.5-5.3); SODIUM, SERUM 147 MMOL/L (135-148)
[2016-09-19 05:54] LABS: MANUAL DIFF NO %
[2016-09-19 07:05] LABS: PROCALCITONIN 0.19 ng/mL (<0.5)
[2016-09-20 04:11] LABS: BASOPHILS 0 %; EOSINOPHILS 0 %; HEMATOCRIT 27.5 % (36.0-48.0); HEMOGLOBIN 8.6 g/dL (12.0-16.0); IMMATURE GRANULOCYTES 1.1 %; IMMATURE GRANULOCYTES ABSOLUTE 0.15 10/3/uL (0.0-0.11); LYMPHOCYTES 6.1 %; LYMPHOCYTES ABSOLUTE 0.86 10/3/uL (0.67-4.30); MEAN CORPUS HGB CONC 31.3 g/dL (32.0-36.0); MEAN CORPUSCULAR VOLUME 92.6 fL (80-100); MONOCYTES 3.7 %; MONOCYTES ABSOLUTE 0.52 10/3/uL (0.21-1.20); NEUTROPHILS 89.1 %; NEUTROPHILS ABSOLUTE 12.61 10/3/uL (2.02-8.40); PLATELET COUNT 216 10/3/uL (150-400); RBC DISTRIBUTION WIDTH 14.6 % (12.0-16.0); RED CELL COUNT 2.97 10/6/uL (4.0-5.6); WHITE BLOOD CELLS 14.1 10/3/uL (4.5-10.5)
[2016-09-20 04:20] LABS: MANUAL DIFF NO %
[2016-09-20 05:14] LABS: CALCIUM, SERUM 8.3 MG/DL (8.5-10.4); CHLORIDE, SERUM 103 MMOL/L (96-112); CO2 (CARBON DIOXIDE) 33 MMOL/L (24-34); CREATININE 1.55 MG/DL (0.55-1.02); FREE T4 2.02 NG/DL (0.76-1.46); GFR AFRICAN AMERICAN 37 ML/MIN (>=60); GFR NON AFRICAN AMERICAN 32 ML/MIN (>=60); GLUCOSE, SERUM 137 MG/DL (60-99); PHOSPHORUS, SERUM 3.6 MG/DL (2.5-4.5); POTASSIUM, SERUM 3.6 MMOL/L (3.5-5.3); SODIUM, SERUM 144 MMOL/L (135-148)
[2016-09-20 05:15] LABS: ALBUMIN 2.2 G/DL (3.5-5.0); BUN (BLOOD UREA NITROGEN) 74 MG/DL (6-23); ULTRASENSITIVE TSH 0.135 MCIU/ML (0.358-3.740)
[2016-09-21 04:30] LABS: HEMATOCRIT 27.3 % (36.0-48.0); HEMOGLOBIN 8.5 g/dL (12.0-16.0); MEAN CORPUS HGB CONC 31.1 g/dL (32.0-36.0); MEAN CORPUSCULAR HEMOGLOB 28.7 pg (26.0-34.0); MEAN CORPUSCULAR VOLUME 92.2 fL (80-100); MEAN PLATELET VOLUME 9.9 fL (9.2-13.0); PLATELET COUNT 203 10/3/uL (150-400); RBC DISTRIBUTION WIDTH 14.5 % (12.0-16.0); RED CELL COUNT 2.96 10/6/uL (4.0-5.6); WHITE BLOOD CELLS 12.1 10/3/uL (4.5-10.5)
[2016-09-21 04:31] LABS: MANUAL DIFF YES %
[2016-09-21 04:43] LABS: ALBUMIN 2.1 G/DL (3.5-5.0); CALCIUM, SERUM 8.6 MG/DL (8.5-10.4); CHLORIDE, SERUM 101 MMOL/L (96-112); CO2 (CARBON DIOXIDE) 37 MMOL/L (24-34); CREATININE 1.47 MG/DL (0.55-1.02); GFR AFRICAN AMERICAN 39 ML/MIN (>=60); GFR NON AFRICAN AMERICAN 34 ML/MIN (>=60); PHOSPHORUS, SERUM 3.6 MG/DL (2.5-4.5); POTASSIUM, SERUM 3.5 MMOL/L (3.5-5.3); SODIUM, SERUM 144 MMOL/L (135-148)
[2016-09-21 04:44] LABS: BUN (BLOOD UREA NITROGEN) 64 MG/DL (6-23); GLUCOSE, SERUM 171 MG/DL (60-99)
[2016-09-21 05:16] LABS: BAND NEUTROPHILS 1 %; EOSINOPHILS 1 %; EOSINOPHILS ABSOLUTE (CALC) 0.12 10/3/uL (0.0-0.53); IMMATURE GRANS ABSOLUTE (CALC) 0.36 10/3/uL (0.0-0.11); LYMPHOCYTES 8 %; LYMPHOCYTES ABSOLUTE (CALC) 0.97 10/3/uL (0.67-4.30); METAMYELOCYTES 3 %; NEUTROPHILS ABSOLUTE (CALC) 10.65 10/3/uL (2.02-8.40); PLATELET ESTIMATE ADQ (ADEQUATE); RBC MORPHOLOGY NORM (NORMAL); SEGMENTED NEUTROPHIL (0) 87 %; TOTAL NUCLEATED CELLS 100
[2016-09-21 14:24] LABS: ANA PATTERN SPECKLED
[2016-09-22 04:54] LABS: HEMOGLOBIN 8.1 g/dL (12.0-16.0); MEAN CORPUS HGB CONC 31.2 g/dL (32.0-36.0); MEAN CORPUSCULAR HEMOGLOB 28.8 pg (26.0-34.0); MEAN CORPUSCULAR VOLUME 92.5 fL (80-100); MEAN PLATELET VOLUME 10.1 fL (9.2-13.0); PLATELET COUNT 206 10/3/uL (150-400); RBC DISTRIBUTION WIDTH 14.2 % (12.0-16.0); RED CELL COUNT 2.81 10/6/uL (4.0-5.6); WHITE BLOOD CELLS 14.3 10/3/uL (4.5-10.5)
[2016-09-22 04:59] LABS: MANUAL DIFF YES %
[2016-09-22 05:07] LABS: CALCIUM, SERUM 8.3 MG/DL (8.5-10.4); CHLORIDE, SERUM 103 MMOL/L (96-112); CO2 (CARBON DIOXIDE) 36 MMOL/L (24-34); CREATININE 1.54 MG/DL (0.55-1.02); GFR AFRICAN AMERICAN 37 ML/MIN (>=60); GFR NON AFRICAN AMERICAN 32 ML/MIN (>=60); GLUCOSE, SERUM 193 MG/DL (60-99); PHOSPHORUS, SERUM 2.8 MG/DL (2.5-4.5); POTASSIUM, SERUM 3.8 MMOL/L (3.5-5.3); SODIUM, SERUM 143 MMOL/L (135-148)
[2016-09-22 05:20] LABS: BUN (BLOOD UREA NITROGEN) 58 MG/DL (6-23)
[2016-09-22 05:36] LABS: BAND NEUTROPHILS 1 %; IMMATURE GRANS ABSOLUTE (CALC) 0.14 10/3/uL (0.0-0.11); LYMPHOCYTES 5 %; LYMPHOCYTES ABSOLUTE (CALC) 0.72 10/3/uL (0.67-4.30); METAMYELOCYTES 1 %; NEUTROPHILS ABSOLUTE (CALC) 13.44 10/3/uL (2.02-8.40); PLATELET ESTIMATE ADQ (ADEQUATE); SEGMENTED NEUTROPHIL (0) 93 %; TOTAL NUCLEATED CELLS 100
[2016-09-22 06:57] LABS: PROCALCITONIN 0.39 ng/mL (<0.5)
[2016-09-22 12:14] LABS: ALLENS TEST Pos; BE (BASE EXCESS) 11.2 MEQ/L (0 +/- 2.5); BIPAP 15/5 cm.H2O; CARBOXYHEMOGLOBIN 0.6 % (0-3); HEMOBLOGIN CONTENT 8.8 G/DL (12-16); INSTRUMENT SERIAL # 8083; METHEMOGLOBIN 0.3 % (0-3); O2 CONTENT 11.9 VOL% (18-24); OPERATOR ID 18801; PCO2 (CO2 TENSION) 57 MMHG (35-45); PO2 (O2 TENSION) 93 MMHG (79-93); SAMPLE Arterial; pH 7.43 (7.37-7.43)
[2016-09-22 23:59] LABS: ANCA <1:20 (()); MYELOPEROXIDASE ANTIBODY <0.2 AI (<1.0); PROTEINASE 3 ANTIBODY <0.2 AI (<1.0)
[2016-09-23 05:19] LABS: BASOPHILS 0.1 %; BASOPHILS ABSOLUTE 0.01 10/3/uL (0.0-0.16); EOSINOPHILS 0.3 %; EOSINOPHILS ABSOLUTE 0.05 10/3/uL (0.0-0.53); IMMATURE GRANULOCYTES 1.1 %; IMMATURE GRANULOCYTES ABSOLUTE 0.17 10/3/uL (0.0-0.11); LYMPHOCYTES 3.1 %; LYMPHOCYTES ABSOLUTE 0.49 10/3/uL (0.67-4.30); MEAN CORPUS HGB CONC 30.8 g/dL (32.0-36.0); MEAN CORPUSCULAR HEMOGLOB 28.8 pg (26.0-34.0); MEAN CORPUSCULAR VOLUME 93.5 fL (80-100); MEAN PLATELET VOLUME 10.2 fL (9.2-13.0); MONOCYTES 3.9 %; MONOCYTES ABSOLUTE 0.62 10/3/uL (0.21-1.20); NEUTROPHILS 91.5 %; NEUTROPHILS ABSOLUTE 14.71 10/3/uL (2.02-8.40); PLATELET COUNT 236 10/3/uL (150-400); RBC DISTRIBUTION WIDTH 14.3 % (12.0-16.0); RED CELL COUNT 2.78 10/6/uL (4.0-5.6); WHITE BLOOD CELLS 16.1 10/3/uL (4.5-10.5)
[2016-09-23 05:23] LABS: MANUAL DIFF NO %
[2016-09-23 05:32] LABS: CALCIUM, SERUM 8.7 MG/DL (8.5-10.4); CHLORIDE, SERUM 99 MMOL/L (96-112); CO2 (CARBON DIOXIDE) 36 MMOL/L (24-34); CREATININE 1.58 MG/DL (0.55-1.02); GFR AFRICAN AMERICAN 36 ML/MIN (>=60); GFR NON AFRICAN AMERICAN 31 ML/MIN (>=60); GLUCOSE, SERUM 180 MG/DL (60-99); SODIUM, SERUM 143 MMOL/L (135-148)
[2016-09-23 05:33] LABS: BUN (BLOOD UREA NITROGEN) 64 MG/DL (6-23)
[2016-09-23 06:06] LABS: SED RATE 111 MM/HR (0-20)
[2016-09-23 08:42] LABS: BE (BASE EXCESS) 11.3 MEQ/L (0 +/- 2.5); CARBOXYHEMOGLOBIN 0.3 % (0-3); HCO3 (ACTUAL BICARBONATE) 36.3 MEQ/L (23-27); HEMOBLOGIN CONTENT 8.6 G/DL (12-16); INSTRUMENT SERIAL # 8083; METHEMOGLOBIN 0.3 % (0-3); O2 CONTENT 11.6 VOL% (18-24); OPERATOR ID 18801; PCO2 (CO2 TENSION) 51 MMHG (35-45); PO2 (O2 TENSION) 86 MMHG (79-93); SAMPLE Arterial; pH 7.47 (7.37-7.43)
[2016-09-23 08:43] LABS: BIPAP 15/5 cm.H2O
[2016-09-24 06:17] LABS: BASOPHILS 0.1 %; BASOPHILS ABSOLUTE 0.01 10/3/uL (0.0-0.16); EOSINOPHILS 0.4 %; EOSINOPHILS ABSOLUTE 0.06 10/3/uL (0.0-0.53); HEMATOCRIT 24.3 % (36.0-48.0); HEMOGLOBIN 7.4 g/dL (12.0-16.0); IMMATURE GRANULOCYTES 0.9 %; IMMATURE GRANULOCYTES ABSOLUTE 0.12 10/3/uL (0.0-0.11); LYMPHOCYTES 3.1 %; LYMPHOCYTES ABSOLUTE 0.42 10/3/uL (0.67-4.30); MEAN CORPUS HGB CONC 30.5 g/dL (32.0-36.0); MEAN CORPUSCULAR HEMOGLOB 28.5 pg (26.0-34.0); MEAN CORPUSCULAR VOLUME 93.5 fL (80-100); MONOCYTES 4.3 %; MONOCYTES ABSOLUTE 0.57 10/3/uL (0.21-1.20); NEUTROPHILS 91.2 %; PLATELET COUNT 215 10/3/uL (150-400); RBC DISTRIBUTION WIDTH 14.7 % (12.0-16.0); WHITE BLOOD CELLS 13.4 10/3/uL (4.5-10.5)
[2016-09-24 06:18] LABS: MANUAL DIFF NO %
[2016-09-24 06:28] LABS: CALCIUM, SERUM 8.4 MG/DL (8.5-10.4); CHLORIDE, SERUM 104 MMOL/L (96-112); CO2 (CARBON DIOXIDE) 32 MMOL/L (24-34); CREATININE 1.48 MG/DL (0.55-1.02); GFR AFRICAN AMERICAN 39 ML/MIN (>=60); GFR NON AFRICAN AMERICAN 34 ML/MIN (>=60); POTASSIUM, SERUM 4.1 MMOL/L (3.5-5.3); SODIUM, SERUM 144 MMOL/L (135-148)
[2016-09-24 06:31] LABS: BUN (BLOOD UREA NITROGEN) 76 MG/DL (6-23); GLUCOSE, SERUM 245 MG/DL (60-99)
[2016-09-25 06:22] LABS: BASOPHILS 0.1 %; BASOPHILS ABSOLUTE 0.01 10/3/uL (0.0-0.16); EOSINOPHILS 0.1 %; EOSINOPHILS ABSOLUTE 0.01 10/3/uL (0.0-0.53); HEMATOCRIT 24.5 % (36.0-48.0); HEMOGLOBIN 7.5 g/dL (12.0-16.0); IMMATURE GRANULOCYTES 0.9 %; LYMPHOCYTES 3.7 %; LYMPHOCYTES ABSOLUTE 0.44 10/3/uL (0.67-4.30); MEAN CORPUS HGB CONC 30.6 g/dL (32.0-36.0); MEAN CORPUSCULAR HEMOGLOB 28.6 pg (26.0-34.0); MEAN CORPUSCULAR VOLUME 93.5 fL (80-100); MEAN PLATELET VOLUME 10.1 fL (9.2-13.0); MONOCYTES 3.6 %; MONOCYTES ABSOLUTE 0.42 10/3/uL (0.21-1.20); NEUTROPHILS 91.6 %; NEUTROPHILS ABSOLUTE 10.76 10/3/uL (2.02-8.40); PLATELET COUNT 206 10/3/uL (150-400); RBC DISTRIBUTION WIDTH 14.7 % (12.0-16.0); RED CELL COUNT 2.62 10/6/uL (4.0-5.6); WHITE BLOOD CELLS 11.7 10/3/uL (4.5-10.5)
[2016-09-25 06:24] LABS: MANUAL DIFF NO %
[2016-09-25 06:30] LABS: BUN (BLOOD UREA NITROGEN) 72 MG/DL (6-23); CALCIUM, SERUM 8.2 MG/DL (8.5-10.4); CHLORIDE, SERUM 103 MMOL/L (96-112); CO2 (CARBON DIOXIDE) 34 MMOL/L (24-34); CREATININE 1.52 MG/DL (0.55-1.02); GFR AFRICAN AMERICAN 38 ML/MIN (>=60); GFR NON AFRICAN AMERICAN 33 ML/MIN (>=60); GLUCOSE, SERUM 273 MG/DL (60-99); POTASSIUM, SERUM 4.1 MMOL/L (3.5-5.3); SODIUM, SERUM 143 MMOL/L (135-148)
[2016-09-25 11:02] LABS: INFLUENZA A SCREEN NEGATIVE (NEGATIVE); INFLUENZA B SCREEN NEGATIVE (NEGATIVE)
[2016-09-25 21:27] LABS: ALLENS TEST Pos; BE (BASE EXCESS) 8.4 MEQ/L (0 +/- 2.5); BIPAP 15/5 cm.H2O; CARBOXYHEMOGLOBIN 0.4 % (0-3); HCO3 (ACTUAL BICARBONATE) 33.7 MEQ/L (23-27); HEMOBLOGIN CONTENT 8.4 G/DL (12-16); INSTRUMENT SERIAL # 8083; O2 CONTENT 11.5 VOL% (18-24); OPERATOR ID 30013; PCO2 (CO2 TENSION) 51 MMHG (35-45); PO2 (O2 TENSION) 97 MMHG (79-93); SAMPLE Arterial; pH 7.44 (7.37-7.43)
[2016-09-27 04:15] LABS: BASOPHILS 0.1 %; BASOPHILS ABSOLUTE 0.01 10/3/uL (0.0-0.16); EOSINOPHILS 0.1 %; EOSINOPHILS ABSOLUTE 0.01 10/3/uL (0.0-0.53); HEMATOCRIT 26.7 % (36.0-48.0); HEMOGLOBIN 8.1 g/dL (12.0-16.0); IMMATURE GRANULOCYTES 0.8 %; IMMATURE GRANULOCYTES ABSOLUTE 0.16 10/3/uL (0.0-0.11); LYMPHOCYTES 2.1 %; LYMPHOCYTES ABSOLUTE 0.42 10/3/uL (0.67-4.30); MEAN CORPUS HGB CONC 30.3 g/dL (32.0-36.0); MEAN CORPUSCULAR HEMOGLOB 28.4 pg (26.0-34.0); MEAN CORPUSCULAR VOLUME 93.7 fL (80-100); MEAN PLATELET VOLUME 10.1 fL (9.2-13.0); MONOCYTES 2.3 %; MONOCYTES ABSOLUTE 0.46 10/3/uL (0.21-1.20); NEUTROPHILS 94.6 %; NEUTROPHILS ABSOLUTE 18.65 10/3/uL (2.02-8.40); PLATELET COUNT 229 10/3/uL (150-400); RED CELL COUNT 2.85 10/6/uL (4.0-5.6)
[2016-09-27 04:16] LABS: MANUAL DIFF NO %; WHITE BLOOD CELLS 19.7 10/3/uL (4.5-10.5)
[2016-09-27 04:29] LABS: CALCIUM, SERUM 8.7 MG/DL (8.5-10.4); CHLORIDE, SERUM 108 MMOL/L (96-112); CO2 (CARBON DIOXIDE) 34 MMOL/L (24-34); CREATININE 1.29 MG/DL (0.55-1.02); GFR AFRICAN AMERICAN 46 ML/MIN (>=60); GFR NON AFRICAN AMERICAN 40 ML/MIN (>=60); POTASSIUM, SERUM 3.8 MMOL/L (3.5-5.3); SODIUM, SERUM 149 MMOL/L (135-148)
[2016-09-27 04:32] LABS: BUN (BLOOD UREA NITROGEN) 67 MG/DL (6-23); GLUCOSE, SERUM 173 MG/DL (60-99)
[2016-09-29 18:44] LABS: BLASTOMYCES DERMATITIDIS AG None detected ng/mL (<0.20)
== END 2016-09-27 18:34 | disposition expired | DRG 291 ==
LOC: CDU1 04:26 → 7NO 14:05 → IMCU 09-18 19:59
PROVIDERS: Hospitalist; Internal Medicine; Internal Medicine Critical Care Medicine; Internal Medicine Infectious Disease; Nurse Practitioner Family
PROC: 5A09557 Assistance with Respiratory Ventilation, Greater than 96 Consecutive Hours, Continuous Positive Airway Pressure (ICD-10-PCS; principal; 2016-09-22)
DX: I13.0 Hypertensive heart and chronic kidney disease with heart failure and stage 1 through stage 4 chronic kidney disease, or unspecified chronic kidney disease (principal); J96.01 Acute respiratory failure with hypoxia; J18.9 Pneumonia, unspecified organism; N18.4 Chronic kidney disease, stage 4 (severe); E11.22 Type 2 diabetes mellitus with diabetic chronic kidney disease; I49.5 Sick sinus syndrome; I24.8 Other forms of acute ischemic heart disease; E11.65 Type 2 diabetes mellitus with hyperglycemia; J81.0 Acute pulmonary edema; I50.33 Acute on chronic diastolic (congestive) heart failure; I48.0 Paroxysmal atrial fibrillation; I25.10 Atherosclerotic heart disease of native coronary artery without angina pectoris; D64.9 Anemia, unspecified; E03.9 Hypothyroidism, unspecified; F41.1 Generalized anxiety disorder; Z95.0 Presence of cardiac pacemaker; Z95.5 Presence of coronary angioplasty implant and graft; Z51.5 Encounter for palliative care; J44.9 Chronic obstructive pulmonary disease, unspecified
CPT/HCPCS: 36600; 71010; 71250; 80048; 80053; 80069; 82784; 82805; 82962; 83036; 83516; 83516-59; 83735; 83880; 84100; 84145; 84439; 84443; 84484; 85025; 85652; 86039; 86140; 86141; 86255; 87040; 87070; 87205; 87327; 87385; 87449; 87641; 87804; 93005; 93306; 94640; 94660; 94667; A9270-GY; J0360; J0456; J0692; J2185; J2405; J2550; J2930; J3370